=== PATIENT | female | born 1945 | race Caucasian/White ===

== ENCOUNTER 2023-05-17 13:00 | Inpatient (IN) | payer MEDICARE, BC ==
[2023-05-17 13:12] VITALS: BMI 26.6
[2023-05-17 14:27] LABS: #Basophils 0.05 10x3/uL (0.0-0.2); #Eosinphils 0.28 10x3/uL (0.0-0.5); #Monocytes 0.44 10x3/uL (0.0-1.1); #Neutrophils 4.18 10x3/uL (1.5-8.4); %Basophils 0.7 % (0.0-2.0); %Eosinophils 3.8 % (0.0-6.0); %Lymphocytes 32.2 % (18.0-47.0); %Neutrophils 56.9 % (40.0-75.0); Hematocrit 39.6 % (34.9-44.5); Hemoglobin 13.2 g/dL (12.0-15.5); Mean Corpuscular HGB CONC 33.3 g/dL (32.0-36.0); Mean Corpuscular Hemoglobin 30.1 pg (27.0-33.0); Mean Corpuscular Volume 90.4 fl (81.6-98.3); Platelet Count 319 10x3/uL (150-450); RBC Distribution Width 13.6 % (11.5-14.5); Red Blood Cell (RBC) Count 4.38 10x6/uL (3.90-5.03); White Blood Cell (WBC) Count 7.3 10x3/uL (3.5-10.5)
[2023-05-17 14:41] LABS: Bilirubin Neg (Negative); Blood, Urine Negative (Negative); Clarity Clear (Clear); Glucose, Urine (Dipstick) Normal (Negative); Ketone, Urine Negative (Negative); Leukocyte 25 (Negative); Nitrite Negative (Negative); Protein, Urine (Dipstick) Negative (Neg-Trace); Specific Gravity, Urine 1.005 (1.005-1.030); Urobilinogen Normal mg/dL (Less than 2)
[2023-05-17 14:50] LABS: Prothrombin Time 10.8 sec (9.5-12.1)
[2023-05-17 14:59] LABS: Anion Gap 13 mmol/L (10-20); BUN (Urea Nitrogen) 29 mg/dL (9.8-20.1); Calc. Creatinine Clearance 0 mL/min (70-130); Calcium 10.4 mg/dL (7.8-10.44); Carbon Dioxide 29 mmol/L (23-31); Chloride 104 mmol/L (98-107); Estimated GFR 62; Glucose 56 mg/dL (83-110); Potassium 4.1 mmol/L (3.5-5.1); Sodium 142 mmol/L (136-145)
[2023-05-22] MEDS ORDERED: Vancomycin 1 GM/200 ML (FROZEN) BAG ONE (07:56)
[2023-05-22] MEDS ORDERED: Tranexamic Acid 1,000 MG/10 ML VIAL ONE ×2 (07:56→13:30)
[2023-05-22] MEDS ORDERED: Sodium Chloride 0.9% 100 ML ONE ×2 (07:56→10:15)
[2023-05-22] MEDS ORDERED: Midazolam HCl 2 mg/2 ml Vial ONE (08:04)
[2023-05-22] MEDS ORDERED: Bupivacaine PF 0.5% 30 ML VIAL ONE (08:04)
[2023-05-22] MEDS ORDERED: fentaNYL 50 mcg/mL 1 mL Vial ONE ×3 (08:04→13:40)
[2023-05-22] MEDS ORDERED: fentaNYL 50 mcg/mL 1 mL Vial SLOW IVP PRN (08:54)
[2023-05-22] MEDS ORDERED: Bupivacaine HCl 0.5%/Epinephrine 1:200,000/PF 30 ml Vial ONE (08:55)
[2023-05-22] MEDS ORDERED: Ondansetron PF 4 MG/2 ML Vial IVP PRN (09:00)
[2023-05-22] MEDS ORDERED: Ropivacaine 0.2% 550 ML 550 ML NERVE BLCK SCH (09:00)
[2023-05-22] MEDS ORDERED: Promethazine HCl 25 MG/ML VIAL IM PRN ×3 (09:00→13:08)
[2023-05-22] MEDS ORDERED: Zolpidem Tartrate 5 MG TAB PO PRN ×2 (09:00→13:08)
[2023-05-22] MEDS ORDERED: CEFAZOLIN 2 GM VIAL ONE (10:15)
[2023-05-22] MEDS ORDERED: Bupivacaine 0.25% HCL 30 ML VIAL ONE (10:15)
[2023-05-22] MEDS ORDERED: fentaNYL PF 100 MCG/2 ML SYRINGE ONE (10:26)
[2023-05-22] MEDS ORDERED: Dexamethasone 20 MG/5 ML VIAL ONE (10:26)
[2023-05-22] MEDS ORDERED: PROPOFOL 20 ML ONE (10:26)
[2023-05-22] MEDS ORDERED: Lidocaine 2% PF 5 ML VIAL ONE (10:26)
[2023-05-22] MEDS ORDERED: Ondansetron PF 4 MG/2 ML Vial ONE (10:26)
[2023-05-22] MEDS ORDERED: Ondansetron HCl/PF 4 MG/2 ML Vial IVP PRN (12:31)
[2023-05-22] MEDS ORDERED: Ketorolac Tromethamine 30 MG (1 mL) VIAL ONE (12:49)
[2023-05-22] MEDS: Ketorolac Tromethamine 30 MG (1 mL) VIAL IVP SCH (12:53)
[2023-05-22] MEDS ORDERED: diphenhydrAMINE 25 MG CAP PO PRN (13:08)
[2023-05-22] MEDS ORDERED: Acetaminophen 325 MG TAB PO PRN (13:08)
[2023-05-22] MEDS ORDERED: Tranexamic Acid 1,000 MG in Sodium Chloride 0.9% 100 ML IVPB SCH (13:15)
[2023-05-22] MEDS ORDERED: HumaLOG 300 UNITS/3 ML VIAL SC SCH (15:00)
[2023-05-22] MEDS: Sodium Chloride 0.9% 1,000 ML IV SCH (15:30)
[2023-05-22] MEDS ORDERED: Glucagon 1 MG/ML KIT IM PRN (15:36)
[2023-05-22] MEDS ORDERED: Dextrose 50% Abboject 50 ML SYRINGE SLOW IVP PRN (15:36)
[2023-05-22] MEDS ORDERED: Dextrose 5% in Water 1,000 ML IV PRN (15:36)
[2023-05-22] MEDS ORDERED: Insulin Regular 300 UNITS/3 ML VIAL SC PRN (15:36)
[2023-05-22] MEDS: metFORMIN 500 MG TAB PO SCH (17:51)
[2023-05-22] MEDS: CEFAZOLIN 2 GM in Sodium Chloride 0.9% 100 ML IVPB SCH (17:51)
[2023-05-22] MEDS: HYDROcodone/Acetaminophen 10/325 mg Tablet PO PRN (17:56)
[2023-05-22] MEDS ORDERED: Insulin Glargine 30 UNITS/0.3 ML VIAL SC SCH (21:00)
[2023-05-22] MEDS: Aspirin 81 mg Enteric Coated Tablet PO SCH (21:00)
[2023-05-22] MEDS: Vancomycin (BATCH) 1.5 GM in Premix 1 BAG IVPB SCH (21:18)
[2023-05-22] MEDS: Insulin Glargine 30 UNITS/0.3 ML VIAL SC SCH (21:20)
[2023-05-22] MEDS: Atorvastatin Calcium 20 MG TAB PO SCH (21:21)
[2023-05-22] MEDS: Carvedilol 6.25 MG TAB PO SCH (21:22)
[2023-05-22] MEDS: Bisacodyl 5 MG TAB PO SCH (22:22)
[2023-05-23 05:00] LABS: Hemoglobin 10.9 g/dL (12.0-16.0); Mean Corpuscular HGB CONC 32.1 g/dL (32.0-36.0); Mean Corpuscular Hemoglobin 29.5 pg (27.0-31.0); Mean Corpuscular Volume 91.9 fL (78.0-98.0); Mean Platelet Volume 9.9 fL (7.4-10.4); Platelet Count 214 10x3/uL (130-400); RBC Distribution Width 13.7 % (11.5-14.5)
[2023-05-23] MEDS: Insulin Regular 300 UNITS/3 ML VIAL SC PRN (06:44)
[2023-05-23] MEDS ORDERED: Aspirin 81 mg Enteric Coated Tablet PO SCH (09:00)
[2023-05-23] MEDS ORDERED: Ferrous Sulfate 325 MG TAB PO SCH (09:00)
[2023-05-23] MEDS: Ascorbic Acid 500 mg Chewable Tablet PO SCH (09:44)
[2023-05-23] MEDS: Senokot S 8.6-50 MG TAB PO SCH (09:45)
[2023-05-23] MEDS: Multivitamin W/ Minerals 1 TAB PO SCH (09:45)
[2023-05-23] MEDS: Calcium Carbonate 600 MG TAB PO SCH (09:45)
[2023-05-23] MEDS: Loratadine 10 MG TAB PO SCH (09:45)
[2023-05-23] MEDS: Ferrous Gluconate 324 MG TAB PO SCH (09:45)
[2023-05-23] MEDS: Amlodipine 5 MG TAB PO SCH (09:46)
[2023-05-23] MEDS: Losartan 25 MG TAB PO SCH (09:46)
[2023-05-23] MEDS: guaiFENesin ER 600 MG TAB PO SCH (09:46)
[2023-05-23] MEDS: Pantoprazole DR 40 MG TAB PO SCH (09:46)
[2023-05-23] MEDS: Montelukast Sodium 10 mg Tablet PO SCH (09:46)
[2023-05-23] MEDS: Hydrochlorothiazide 25 MG TAB PO SCH (09:46)
[2023-05-23] MEDS ORDERED: Glucagon 1 MG/ML KIT IM PRN (13:54)
[2023-05-23] MEDS ORDERED: Dextrose 5% in Water 1,000 ML IV PRN (13:54)
[2023-05-23] MEDS ORDERED: Insulin Regular 300 UNITS/3 ML VIAL SC PRN (13:54)
[2023-05-23] MEDS ORDERED: Dextrose 50% Abboject 50 ML SYRINGE SLOW IVP PRN (13:54)
[2023-05-23] MEDS: Ondansetron PF 4 MG/2 ML Vial IVP PRN (15:05)
[2023-05-23 16:32] VITALS: BP 144/79; TEMP 98.5
[2023-05-23] MEDS: HYDROcodone/Acetaminophen 10/325 mg Tablet PO PRN (17:59)
== END 2023-05-23 19:30 | DRG 470 ==
LOC: SURG A 05-22 06:59 → INTOOBSV 05-22 06:59 → SJJU 05-22 14:20 → OBSVTOIN 05-23 09:53
PROVIDERS: ADMIT Orthopaedic Surgery; ATTEND Orthopaedic Surgery
PROC: 0SRC0J9 Replacement of Right Knee Joint with Synthetic Substitute, Cemented, Open Approach (ICD-10-PCS; principal; 2023-05-22)
DX: M17.11 Unilateral primary osteoarthritis, right knee (principal); E78.00 Pure hypercholesterolemia, unspecified; G89.29 Other chronic pain; I10 Essential (primary) hypertension; M81.0 Age-related osteoporosis without current pathological fracture; E11.9 Type 2 diabetes mellitus without complications; H26.9 Unspecified cataract; Z96.652 Presence of left artificial knee joint; Z90.710 Acquired absence of both cervix and uterus; Z98.41 Cataract extraction status, right eye; Z98.42 Cataract extraction status, left eye; Z98.890 Other specified postprocedural states; Z91.013 Allergy to seafood
CPT/HCPCS: 36415; 36416; 80048; 81003; 85025; 85027; 85610; 86850; 86900; 86901; 87081; 96365; 96375; 96376; A4306; C1713; C1776; G0378; J0665; J1100; J1815; J1885; J2001; J2250; J2405; J2704; J2795; J3010; J3370; J3370-JW; J3490; J7050